=== PATIENT | female | born 1960 | race Caucasian/White ===

== ENCOUNTER 2020-02-20 14:37 | Emergency (ER) | payer BC ==
--- NOTE | 2020-02-20 15:26 | EDM.PDOC ---
ED HPI GENERAL MEDICAL PROBLEM - General Chief Complaint: Laceration Stated Complaint: laceration Time Seen by Provider: 02/20/20 14:50 Source of Information: Reports: Patient History Limitations: Reports: No Limitations - History of Present Illness INITIAL COMMENTS - FREE TEXT/NARRATIVE: Pt cut lower left leg on barbed wire Tetanus UTD Onset: Today Duration: Minutes: Location: Reports: Lower Extremity, Left Context: Reports: Trauma - Related Data Allergies Allergy/AdvReac Type Severity Reaction Status Date / Time No Known Allergies Allergy Verified 02/20/20 14:38 Home Meds: Home Meds . [No Known Home Meds] 02/20/20 [History] ED ROS GENERAL - Review of Systems Review Of Systems: See Below Skin: Reports: Wound ED EXAM, SKIN/RASH Exam: See Below Skin: Other (4 cm laceration to lower left leg on anterior manzo) ED SKIN PROCEDURES - Laceration/Wound Repair Left Lower Leg Appearance: Subcutaneous Distal NVT: Neuro & Vascular Intact, No Tendon Injury Anesthetic Type: Local Local Anesthesia - Lidocaine (Xylocaine): 1% with EPI Local Anesthetic Volume: 3cc Skin Prep: Chlorhexidine (Hibiciens) Closed with: Sutures Lac/Wound length In cm: 4 Suture Size: 3-0 # of Sutures: 4 Suture Type: Nylon Sterile Dressing Applied: Nurse Tetanus Status Addressed: Yes Complications: No Course - Vital Signs Last Recorded V/S: Last Vital Signs Temp 98.0 F 02/20/20 15:04 Pulse 74 02/20/20 15:04 Resp 18 02/20/20 15:04 BP 117/62 02/20/20 15:04 Pulse Ox 99 02/20/20 15:04 - Orders/Labs/Meds Meds: Medications Discontinued Medications Generic Name Dose Route Start Last Admin Trade Name Lulu PRN Reason Stop Dose Admin Lidocaine HCl 5 ml 02/20/20 15:06 02/20/20 15:10 Xylocaine-Mpf 1% INJECT 02/20/20 15:07 5 ml ONETIME ONE Administration Lidocaine HCl 5 ml 02/20/20 15:06 02/20/20 15:10 Xylocaine-Mpf 1% INJECT 02/20/20 15:07 5 ml ONETIME ONE Administration Departure - Departure Time of Disposition: 15:30 Disposition: Home, Self-Care 01 Clinical Impression: Laceration of left leg Qualifiers: Encounter type: initial encounter Qualified Code(s): S81.812A - Laceration without foreign body, left lower leg, initial encounter - Discharge Information *PRESCRIPTION DRUG MONITORING PROGRAM REVIEWED*: Not Applicable *COPY OF PRESCRIPTION DRUG MONITORING REPORT IN PATIENT LIBORIO: Not Applicable Instructions: Laceration Care, Adult Referrals: PCP,Not In Area [Primary Care Provider] - Sepsis Event Note (ED) - Evaluation Sepsis Screening Result: No Definite Risk - Focused Exam Vital Signs: Vital Signs Temp Pulse Resp BP Pulse Ox 02/20/20 15:04 98.0 F 74 18 117/62 99
== END 2020-02-20 15:35 | disposition home or self-care (01) ==
LOC: LL.ED 14:37
DX: S81.812A Laceration without foreign body, left lower leg, initial encounter (principal); W26.8XXA Contact with other sharp object(s), not elsewhere classified, initial encounter
CPT/HCPCS: 12002; 99282-25; J2001